=== PATIENT | female | born 1975 | race Caucasian/White ===

== ENCOUNTER → 2018-05-27 | Outpatient (CLI) | payer OTHER ==
--- NOTE | 2018-05-27 16:19 | CT ---
EXAMINATION TYPE: CT tmj maxillofacial wo con DATE OF EXAM: 05/27/2018 COMPARISON: None HISTORY: Left ear pain x [address] DLP: 300 mGycm Automated exposure control for dose reduction was used. Dynamic open and closed evaluation of bilateral temporomandibular joints is obtained. FINDINGS: On close mouth images there is appropriate symmetric positioning of the mandibular condyles relative to the temporal fossa. No significant spurring or subchondral cystic change is present bilaterally. T here is mild asymmetric narrowing on the right versus left seen best on coronal images. Dynamic open mouth view show appropriate anterior inferior translation of the mandibular condyle bilaterally symme tric in appearance. No acute fracture is evident. No suspicious opacification of mastoid air cells is seen. Visualized paranasal sinuses are clear. Vis ualized globes are intact bilaterally. IMPRESSION: MILD DEGENERATIVE CHANGE RIGHT TEMPOROMANDIBULAR JOINT. NO DISLOCATION OR FRACTURE IS EVIDENT.
== END | disposition home or self-care (01) ==
LOC: RADXRMAIN 15:13
PROVIDERS: ATTEND Family Medicine
DX: M26.69 Other specified disorders of temporomandibular joint (principal); H92.02 Otalgia, left ear
CPT/HCPCS: 70486